=== PATIENT | male | born 1985 | race Native Hawaiian/Other Pacific Islander ===

== ENCOUNTER 2021-04-24 17:55 | Emergency (ER) | payer SELFPAY ==
[2021-04-24 18:02] VITALS: BP 123/78
--- NOTE | 2021-04-24 18:45 | Emergency Department Report ---
ED ENT HPI - General Chief complaint: Earache Stated complaint: RIGHT EARACHE Time Seen by Provider: 04/24/21 18:04 Source: patient, RN notes reviewed Mode of arrival: Ambulatory Limitations: No Limitations - History of Present Illness Initial comments: The patient was evaluated in the emergency department for symptoms described in the history of present illness. He/she was evaluated in the context of the global COVID-19 pandemic, which necessitated consideration that the patient might be at risk for infection with the virus that causes COVID-19. Institutional protocols and algorithms that pertain to the evaluation of patients at risk for COVID-19 are in a state of rapid change based on information released by regulatory bodies including the CDC and federal and state organizations. These policies and algorithms were followed during the patient's care in the emergency department. Please note that these policies, procedures and recommendations changed on a rapid basis. 35-year-old man presents to the emergency room for right ear pain status post foreign body to right ear that happened about 3 hours prior to arrival. Patient states he got a ear but stuck in his right ear. Denies any drainage no headache states it is painful. MD complaint: ear pain, foreign body Onset/Timin -: hour(s) (Prior to arrival) Location: R ear Severity: moderate Severity scale (0 -10): 7 Quality: aching Consistency: constant Improves with: none Worsens with: none Context- Ear: other (Foreign body your blood) - Related Data Allergies Allergy/AdvReac Type Severity Reaction Status Date / Time No Known Allergies Allergy Unverified 04/24/21 17:57 ED Dental HPI - General Chief complaint: Earache Stated complaint: RIGHT EARACHE Time Seen by Provider: 04/24/21 18:04 Source: patient Mode of arrival: Ambulatory Limitations: No Limitations - Related Data Allergies Allergy/AdvReac Type Severity Reaction Status Date / Time No Known Allergies Allergy Unverified 04/24/21 17:57 ED Review of Systems ROS: Stated complaint: RIGHT EARACHE Other details as noted in HPI Comment: All other systems reviewed and negative ED Physical Exam - General Limitations: No Limitations General appearance: alert, in no apparent distress - Head Head exam: Present: atraumatic, normocephalic - Eye Eye exam: Present: normal appearance - Expanded ENT Exam Expanded TM/Canal exam: Foreign Body: Right TM Mouth exam: Present: normal external inspection - Neck Neck exam: Present: normal inspection, full ROM - Respiratory Respiratory exam: Absent: respiratory distress, accessory muscle use - Cardiovascular Cardiovascular Exam: Present: regular rate - Back Exam Back exam: Present: normal inspection, full ROM - Neurological Exam Neurological exam: Present: alert, oriented X3 - Psychiatric Psychiatric exam: Present: normal affect, normal mood - Skin Skin exam: Present: warm, dry, intact, normal color. Absent: rash ED Course Vital Signs 04/24/21 18:02 Temperature 98.4 F Pulse Rate 84 Respiratory 20 Rate Blood Pressure 123/78 [Right] O2 Sat by Pulse 97 Oximetry - Foreign Body Removal Ear Location: ear canal (R) Foreign Body Suspected: other (Earbud) Foreign Body Removed: yes Foreign Body Removal Technique: instrumentation Tympanic Membrane Intact: Yes Patient Tolerated Procedure: well Complications: none ED Medical Decision Making - Medical Decision Making 35-year-old man presents to the emergency room for right ear pain status post foreign body to right ear that happened about 3 hours prior to arrival. Patient states he got a ear but stuck in his right ear. Denies any drainage no headache states it is painful. Foreign body removal with alligator forceps Critical care attestation.: If time is entered above; I have spent that time in minutes in the direct care of this critically ill patient, excluding procedure time. ED Disposition Clinical Impression: Foreign body in right ear, initial encounter Disposition: HOME / SELF CARE / HOMELESS Is pt being admited?: No Does the pt Need Aspirin: No Condition: Stable Instructions: Ear Foreign Body, [id number] Additional Instructions: You can take Tylenol or ibuprofen for pain management. Referrals: LATRICIA HOLMAN MD [Referring] - 3-5 Days Forms: Work/School Release Form(ED) Time of Disposition: 18:45
== END 2021-04-24 19:01 | disposition home or self-care (01) ==
LOC: ED 17:55
DX: T16.1XXA Foreign body in right ear, initial encounter (principal); X58.XXXA Exposure to other specified factors, initial encounter; Y93.89 Activity, other specified; Y92.89 Other specified places as the place of occurrence of the external cause; Y99.8 Other external cause status
CPT/HCPCS: 99282